=== PATIENT | male | born 1965 | race Caucasian/White ===

== ENCOUNTER 2017-11-03 17:16 | Inpatient (IN) | payer OTHER ==
[2017-11-03 17:30] LABS: ADD MAN DIFF? NO
[2017-11-03 17:35] LABS: BASOPHILS % 0.4 % (0.0-2.0); EOSINOPHILS # 0.2 10^3/ul (0.0-0.5); HEMATOCRIT 42.1 % (42.0-52.0); HEMOGLOBIN 14.2 g/dl (14.0-18.0); LYMPHOCYTES # 1.9 10^3/ul (0.8-2.9); MEAN CORPUSCULAR HEMOGLOBIN 30.1 pg (29.0-33.0); MEAN CORPUSCULAR HGB CONC 33.7 g/dl (32.0-37.0); MEAN CORPUSCULAR VOLUME 89.2 fl (82.0-101.0); MEAN PLATELET VOLUME 9.9 fl (7.4-10.4); MONOCYTE # 0.7 10^3/ul (0.3-0.9); MONOCYTES % 8.4 % (0.0-11.0); NEUTROPHIL # 5.6 10^3/ul (1.6-7.5); PLATELET COUNT 224 10^3/UL (140-415); RED BLOOD COUNT 4.72 10^6/ul (4.70-6.10); RED CELL DISTRIBUTION WIDTH 12.9 % (11.5-14.5)
[2017-11-03 17:35] LABS: WHITE BLOOD COUNT 8.4 10^3/ul (4.8-10.8)
[2017-11-03] MEDS: ONDANSETRON 4 MG INJ IV (17:43)
[2017-11-03] MEDS: morphine 4 MG/ML VIAL IV (17:43)
[2017-11-03 17:55] LABS: ANION GAP 13 (8-16); BLOOD UREA NITROGEN 12 mg/dl (7-20); CALCIUM 9.4 mg/dl (8.4-10.2); CARBON DIOXIDE 26 mmol/L (21-31); CHLORIDE 104 mmol/L (97-110); CREATININE 0.87 mg/dl (0.61-1.24); GLUCOSE 117 mg/dl (70-220); POTASSIUM 4.1 mmol/L (3.5-5.1); SODIUM 139 mmol/L (135-144)
[2017-11-03] MEDS ORDERED: ACETAMINOPHEN 325 MG TAB PO (19:00)
[2017-11-03] MEDS ORDERED: ONDANSETRON 4 MG INJ IV ×2 (19:00)
[2017-11-03] MEDS ORDERED: NACL 0.9% 3 ML SYG IV (19:00)
[2017-11-03] MEDS ORDERED: NITROGLYCERIN (SL) 0.4 MG TAB SL (19:00)
[2017-11-03] MEDS: ATORVASTATIN 40 MG TAB PO (22:47)
[2017-11-03] MEDS: TICAGRELOR 90 MG TABLET PO (22:50)
[2017-11-03] MEDS: ENOXAPARIN 40 MG/0.4 ML SYG SC (22:59)
[2017-11-04 00:47] LABS: CREATINE KINASE 63 IU/L (23-200)
[2017-11-04 00:58] LABS: CK INDEX 0.7; CK-MB 0.47 ng/ml (0.0-2.4)
[2017-11-04] MEDS: ACETAMINOPHEN 325 MG TAB PO (07:07)
[2017-11-04 07:22] LABS: CK-MB 0.43 ng/ml (0.0-2.4)
[2017-11-04 07:26] LABS: CK INDEX 0.8; CREATINE KINASE 56 IU/L (23-200)
[2017-11-04] MEDS: ENOXAPARIN 40 MG/0.4 ML SYG SC (08:33)
[2017-11-04] MEDS: TICAGRELOR 90 MG TABLET PO (08:33)
[2017-11-04] MEDS: ASPIRIN 81 MG TAB PO (08:33)
[2017-11-04] MEDS: DOCUSATE SODIUM 100 MG CAP PO (09:08)
[2017-11-04] MEDS: POLYETHYLENE GLYCOL 17 GM PACKET PO (09:27)
[2017-11-04] MEDS: SENNA TAB PO (09:27)
== END 2017-11-04 10:20 | disposition home or self-care (01) | DRG 313 ==
LOC: TEL 20:18 → E/R 17:16 → TEL 18:48
DX: R07.9 Chest pain, unspecified (principal); I25.10 Atherosclerotic heart disease of native coronary artery without angina pectoris; E78.5 Hyperlipidemia, unspecified; I10 Essential (primary) hypertension; F17.210 Nicotine dependence, cigarettes, uncomplicated; Z95.5 Presence of coronary angioplasty implant and graft
CPT/HCPCS: 36415; 71045; 80048; 82550; 82553; 84484; 85025; 93005; 99285-25